=== PATIENT | male | born 1945 | race Caucasian/White ===

== ENCOUNTER → 2017-10-17 13:23 | Outpatient (CLI) | payer BC, SELFPAY ==
[2017-10-17 13:30] LABS: Microscopic, Urine URINE MICROSCOPIC (MICROSCOPIC)
[2017-10-17 14:01] LABS: Basophils % 0.1 % (0.1-2.0); Eosinophils # 0.1 K/mm3 (0.0-0.4); Eosinophils % 0.8 % (0.1-12.0); Hematocrit 41.3 % (42.0-52.0); Hemoglobin 13.1 g/dL (14.1-18.0); Lymphocytes # 0.9 K/mm3 (0.7-4.5); Lymphocytes % 15.2 K/mm3 (10-50); Mean Corpuscular HGB Conc 31.8 g/dL (31.8-35.4); Mean Corpuscular Volume 94.5 fl (80-94); Mean Platelet Volume 7.5 fl (7.4-10.4); Monocytes # 0.4 K/mm3 (0.1-1.0); Monocytes % 6.2 % (1.7-9.3); Neutrophils # 4.4 K/mm3 (1.8-7.8); Neutrophils % 77.7 % (37.0-80.0); Platelet Count 161 K/mm3 (142-424); Red Blood Count 4.37 M/mm3 (4.60-6.20); Red Cell Distribution Width 13.9 % (11.5-17.5); White Blood Count 5.6 K/mm3 (4.8-10.8)
[2017-10-17 14:55] LABS: Albumin Level 4.2 gm/dL (3.4-5.0); Anion Gap 16.4 mEq/L (5-15); Appearance,Urine CLEAR (Clear); Bilirubin,Urine Negative (Negative); Blood Urea Nitrogen 46 mg/dL (7-18); Blood, Urine Negative (Negative); Calcium 9.7 mg/dL (8.5-10.1); Carbon Dioxide 25 mmol/L (21.0-32.0); Chloride 105 mmol/L (98-107); Color,Urine YELLOW (Yellow); Creatinine,Serum 1.51 mg/dL (0.70-1.30); Estimated Glomerular Filt Rate 46 ml/min (>60); GFR (African American) 55 ML/MIN (>60); Glucose 177 mg/dL (74-106); Glucose,Urine (UA) 3+ (Negative); Ketones,Urine Negative (Negative); Leukocyte Esterase,Urine Negative (Negative); Nitrate,Urine Negative (Negative); Phosphorous 3.9 mg/dL (2.4-4.9); Potassium 5.4 mmoL/L (3.5-5.1); Protein,Urine Negative (Negative); Sodium 141 mmol/L (136-145); Uric Acid 6.3 mg/dL (2.6-7.2); Urobilinogen,Urine 0.2 EU/dl (0.2)
[2017-10-17 15:02] LABS: Creatinine,Urine Random 36 mg/dL (20-320)
[2017-10-17 15:07] LABS: Bacteria,Urine Trace /lpf; Squamous Epithelial Cell,Urine Occasional #/hpf (0-5)
[2017-10-18 06:05] LABS: Vitamin D 25 Hydroxy 37.6 ng/mL (30.0-100.0)
[2017-10-21 12:45] LABS: Parathyroid Hormone Intact 24 pg/mL (15-65)
== END ==
PROVIDERS: Visit Provider Internal Medicine Nephrology
DX: N18.3 Chronic kidney disease, stage 3 (moderate) (principal)
CPT/HCPCS: 36415; 80069; 81001; 82043; 82570; 82652; 83970; 84550; 85025

== ENCOUNTER → 2017-10-18 14:55 | Outpatient (CLI) | payer BC, SELFPAY ==
[2017-10-21 12:49] LABS: Calcium, Ionized 5.2 mg/dL (4.5-5.6)
== END ==
PROVIDERS: Visit Provider Internal Medicine Nephrology
DX: N18.3 Chronic kidney disease, stage 3 (moderate) (principal)
CPT/HCPCS: 36415; 82330

== ENCOUNTER → 2017-10-24 15:07 | Outpatient (POV) | payer BC, SELFPAY | PROVIDERS: Visit Provider Internal Medicine Nephrology | DX: Z00.00 Encounter for general adult medical examination without abnormal findings (principal) ==

== ENCOUNTER → 2018-11-21 11:26 | Outpatient (CLI) | payer MEDICARE, SELFPAY ==
[2018-11-21 11:35] LABS: Microscopic, Urine URINE MICROSCOPIC (MICROSCOPIC)
[2018-11-21 11:57] LABS: Basophils % 0.3 % (0.1-2.0); Eosinophils # 0.1 K/mm3 (0.0-0.4); Eosinophils % 1.7 % (0.1-12.0); Hematocrit 42.4 % (42.0-52.0); Lymphocytes # 1.2 K/mm3 (0.7-4.5); Lymphocytes % 29.6 % (10-50); Mean Corpuscular HGB Conc 35.4 g/dL (31.8-35.4); Mean Corpuscular Volume 87.7 fl (80-94); Mean Platelet Volume 7.3 fl (7.4-10.4); Monocytes # 0.2 K/mm3 (0.1-1.0); Monocytes % 4.9 % (1.7-9.3); Neutrophils # 2.5 K/mm3 (1.8-7.8); Neutrophils % 63.5 % (37.0-80.0); Platelet Count 154 K/mm3 (142-424); Red Blood Count 4.83 M/mm3 (4.60-6.20); Red Cell Distribution Width 13.7 % (11.5-17.5); White Blood Count 3.9 K/mm3 (4.8-10.8)
[2018-11-21 12:15] LABS: Appearance,Urine CLEAR (Clear); Bilirubin,Urine Negative (Negative); Blood, Urine TRACE-I (Negative); Color,Urine YELLOW (Yellow); Glucose,Urine (UA) Negative (Negative); Ketones,Urine Negative (Negative); Leukocyte Esterase,Urine Negative (Negative); Nitrate,Urine Negative (Negative); PH,Urine 5.5 (5.0-8.5); Protein,Urine TRACE (Negative); Specific Gravity, Urine >= 1.030 (1.005-1.030); Urobilinogen,Urine 0.2 EU/dl (0.2)
[2018-11-21 12:34] LABS: Creatinine,Urine Random 190 mg/dL (20-320)
[2018-11-21 12:49] LABS: Bacteria,Urine Trace /lpf; Mucus,Urine Trace /lpf; WBC,Urine Occasional #/hpf (0-3)
[2018-11-21 13:22] LABS: Albumin Level 3.9 gm/dL (3.4-5.0); Anion Gap 17.3 mEq/L (5-15); Blood Urea Nitrogen 35 mg/dL (7-18); Calcium 8.8 mg/dL (8.5-10.1); Carbon Dioxide 23 mmol/L (21.0-32.0); Chloride 105 mmol/L (98-107); Creatinine,Serum 1.43 mg/dL (0.70-1.30); Estimated Glomerular Filt Rate 49 ml/min (>60); GFR (African American) 59 ML/MIN (>60); Glucose 240 mg/dL (74-106); Phosphorous 3.3 mg/dL (2.4-4.9); Potassium 5.3 mmoL/L (3.5-5.1); Sodium 140 mmol/L (136-145); Uric Acid 6.6 mg/dL (2.6-7.2)
[2018-11-22 10:33] LABS: Microalbumin, Urine 179.4 ug/mL (Not Estab.)
== END ==
PROVIDERS: Visit Provider Internal Medicine Nephrology
DX: N18.3 Chronic kidney disease, stage 3 (moderate) (principal)
CPT/HCPCS: 36415; 80069; 81001; 82043; 82570; 82652; 83520; 84550; 85025

== ENCOUNTER → 2018-12-06 16:04 | Outpatient (POV) | payer MEDICARE, SELFPAY | PROVIDERS: Visit Provider Internal Medicine Nephrology | DX: Z00.00 Encounter for general adult medical examination without abnormal findings (principal) ==

== ENCOUNTER → 2019-07-12 16:31 | Outpatient (CLI) | payer MEDICARE, OTHER, SELFPAY ==
[2019-07-12 17:06] LABS: Basophils % 0.1 % (0.1-2.0); Eosinophils # 0.1 K/mm3 (0.0-0.4); Eosinophils % 1.1 % (0.1-12.0); Hematocrit 43.6 % (42.0-52.0); Hemoglobin 14.2 g/dL (14.1-18.0); Lymphocytes # 0.7 K/mm3 (0.7-4.5); Lymphocytes % 6.9 % (10-50); Mean Corpuscular HGB Conc 32.5 g/dL (31.8-35.4); Mean Corpuscular Hemoglobin 29.1 pg (27.0-31.2); Mean Corpuscular Volume 89.6 fl (80-94); Mean Platelet Volume 7.8 fl (7.4-10.4); Monocytes # 0.4 K/mm3 (0.1-1.0); Monocytes % 3.6 % (1.7-9.3); Neutrophils # 9.1 K/mm3 (1.8-7.8); Neutrophils % 88.4 % (37.0-80.0); Platelet Count 204 K/mm3 (142-424); Red Blood Count 4.87 M/mm3 (4.60-6.20); Red Cell Distribution Width 13.5 % (11.5-17.5); White Blood Count 10.2 K/mm3 (4.8-10.8)
[2019-07-12 17:17] LABS: MANUAL DIFFERENTIAL MANUAL DIFFERENTIAL (MANUAL DIFF)
[2019-07-12 17:18] LABS: Alanine Aminotransferase 20 U/L (12-78); Albumin Level 4.1 gm/dL (3.4-5.0); Albumin/Globulin Ratio 1.1 (1.1-1.8); Alkaline Phosphatase 106 U/L (46-116); Amylase 73 U/L (25-115); Anion Gap 16.5 mEq/L (5-15); Aspartate Amino Transferase 13 U/L (15-37); Bilirubin,Total 0.6 mg/dL (0.2-1.0); Blood Urea Nitrogen 42 mg/dL (7-18); Calcium 9.6 mg/dL (8.5-10.1); Carbon Dioxide 24 mmol/L (21.0-32.0); Chloride 104 mmol/L (98-107); Creatinine,Serum 1.74 mg/dL (0.70-1.30); Estimated Glomerular Filt Rate 39 ml/min (>60); GFR (African American) 47 ML/MIN (>60); Globulin 3.6 gm/dl (1.3-3.2); Glucose 283 mg/dL (74-106); Lipase 250 u/L (73-393); Potassium 4.5 mmoL/L (3.5-5.1); Sodium 140 mmol/L (136-145); Total Protein,Serum 7.7 gm/dL (6.4-8.2)
[2019-07-12 18:04] LABS: Lymphocytes % 10 % (10-50); Monocytes % 1 % (2-9); Neutrophils % 89 % (42-76); Total Cells Counted 100
[2019-07-12 18:05] LABS: Platelet Estimate Normal; RBC Morphology Normal
--- NOTE | 2019-07-12 18:34 | CT_ITS ---
PROCEDURE: CT ABDOMEN PELVIS WO CON CLINICAL INDICATION: PERIUMBILICAL ABD PAIN, HX LAPAROTOMY Abdominal pain, periumbilical pain with nausea COMPARISON: No exams were available for comparison TECHNIQUE: Axial images obtained with sagittal and coronal reformats. All CT scans at the facility use one or more dose reduction, viz: automated exposure control, ma/kV adjustment per patient size (including targeted exams where dose is matched to indication, i.e. head), or iterative reconstruction technique. Oral contrast was administered. FINDINGS: LOWER THORAX: Lung bases are clear. There are coronary artery calcifications. ABDOMEN & PELVIS: The liver, spleen, adrenal glands, and pancreas have an unremarkable unenhanced appearance. There are bilateral renal cysts. No renal calculi or ureteral calculi evident. The stomach is distended. There are multiple distended small bowel loops with air-fluid levels. Some of these loops contain fecalized material. Nondistended loops are present in the right lower quadrant. The transition to nondistended bowel is present in the lower abdomen/upper pelvic region. Small bowel loops appear clumped together in the mid abdomen with some sub adjacent fluid or bowel wall thickening in the right mid abdominal region. Soft tissues Unremarkable appendix. Large bowel is decompressed. There is a small umbilical hernia containing fat and a small hernia just superior to the umbilicus which appears to contain a knuckle of small bowel. There are degenerative changes in the hips and spine. Multiple surgical clips are present in the retroperitoneum. IMPRESSION: The findings are consistent with small bowel obstruction with suspected transition in the lower abdomen/upper pelvic region. There is some sub adjacent increased soft tissue density in the right mid abdominal region overlying the clumped small-bowel loops which could be due to fluid or bowel wall thickening or Nakia enteric inflammatory change. There is a small umbilical and small supraumbilical hernia. The supraumbilical hernia appears to contain a knuckle of small bowel. Dictated by: Abdifatah Staples MD 07/13/2019 05:31 Electronically signed by Abdifatah Staples MD in [place] 07/13/2019 05:31
== END ==
PROVIDERS: PCP Family Medicine; Visit Provider Family Medicine
DX: R10.33 Periumbilical pain (principal); Z98.890 Other specified postprocedural states
CPT/HCPCS: 36415; 74176; 80053; 82150; 83690; 85007; 85025

== ENCOUNTER → 2019-12-26 09:23 | Outpatient (CLI) | payer MEDICARE, OTHER, SELFPAY ==
[2019-12-26 09:34] LABS: Microscopic, Urine URINE MICROSCOPIC (MICROSCOPIC)
[2019-12-26 10:04] LABS: Basophils # 0.2 K/mm3 (0-0.2); Basophils % 4.1 % (0.1-2.0); Eosinophils # 0.1 K/mm3 (0.0-0.4); Eosinophils % 2.1 % (0.1-12.0); Hematocrit 44.4 % (42.0-52.0); Hemoglobin 13.2 g/dL (14.1-18.0); Lymphocytes # 1.6 K/mm3 (0.7-4.5); Lymphocytes % 30.5 % (10-50); Mean Corpuscular HGB Conc 29.8 g/dL (31.8-35.4); Mean Corpuscular Hemoglobin 30.1 pg (27.0-31.2); Mean Platelet Volume 11.4 fl (7.4-10.4); Monocytes # 0.2 K/mm3 (0.1-1.0); Monocytes % 4.7 % (1.7-9.3); Neutrophils # 3.2 K/mm3 (1.8-7.8); Neutrophils % 62.6 % (37.0-80.0); Platelet Count 157 K/mm3 (142-424); Red Blood Count 4.39 M/mm3 (4.60-6.20); Red Cell Distribution Width 19.7 % (11.5-17.5); White Blood Count 5.2 K/mm3 (4.8-10.8)
[2019-12-26 10:42] LABS: Albumin Level 4.5 g/dl (3.5-5.0); Chloride 107 mmol/L (98-107); Potassium 4.9 mmoL/L (3.5-5.1); Sodium 140 mmol/L (136-145)
[2019-12-26 10:45] LABS: Anion Gap 14.9 mEq/L (5-15); Blood Urea Nitrogen 43 mg/dl (9-20); Carbon Dioxide 23 mmol/L (22.0-30.0); Estimated Glomerular Filt Rate 43 ml/min (>60); GFR (African American) 52 ML/MIN (>60); Phosphorous 4.2 mg/dl (2.5-4.5); Uric Acid 7.5 mg/dl (3.5-8.5)
[2019-12-26 10:46] LABS: Calcium 9.6 mg/dl (8.4-10.2); Glucose 169 mg/dl (74-100)
[2019-12-26 10:57] LABS: Intact Parathyroid Hormone 57.6 pg/mL (7.5-53.5)
[2019-12-26 11:02] LABS: 25-OH Vitamin D, Total 44.8 ng/mL (30-100)
[2019-12-26 11:05] LABS: Appearance,Urine CLEAR (Clear); Bilirubin,Urine Negative (Negative); Blood, Urine 2+ (Negative); Color,Urine YELLOW (Yellow); Glucose,Urine (UA) Negative (Negative); Ketones,Urine Negative (Negative); Leukocyte Esterase,Urine Negative (Negative); Nitrate,Urine Negative (Negative); PH,Urine 5.5 (5.0-8.5); Protein,Urine 2+ (Negative); Urobilinogen,Urine 0.2 EU/dl (0.2)
[2019-12-26 11:32] LABS: Bacteria,Urine Trace /lpf; Squamous Epithelial Cell,Urine Occasional #/hpf (0-5)
[2019-12-26 11:55] LABS: Creatinine,Urine Random 91 mg/dL (Not Estab.)
== END ==
PROVIDERS: Visit Provider Internal Medicine Nephrology
DX: N18.3 Chronic kidney disease, stage 3 (moderate) (principal)
CPT/HCPCS: 36415; 80069; 81001; 82306; 82570; 83970; 84155; 84550; 85025

== ENCOUNTER 2024-12-06 08:36 | Outpatient (CLI) | payer MEDICARE, OTHER, SELFPAY ==
--- OUTSIDE RECORDS SUMMARY | 2024-12-06 08:40 | XMS_ITS | Clinical Summary ---
Author Organization Healthcare Address [address] [place] [address] Care Team Providers Care Ultrasound Specialist Name Role Phone Rosalee Foster APRN Primary Care Provider [phone] Family History Medical History Relation Name Comments Cardiac disorder Father Breast cancer Mother Hip fracture Mother Relation Name Status Comments Father Mother Social History Tobacco Use Types Packs/Day Years Used Date Smoking Tobacco: Never Alcohol Use Standard Drinks/Week Comments No 0 (1 standard drink = 0.6 oz pur e alcohol) Sex and Gender Information Value Date Recorded Sex Assigned at Not on file Legal Sex Male 7:34 PM EDT Gender Identity Not on file Sexual Orientation Not on file Last Filed Vital Signs Vital Sign Reading Time Taken Comments Blood Pressure 139/73 12/06/2018 3:42 PM EDT Pulse 75 12/06/2018 3:42 PM EDT Temperature - - Respiratory Rate - - Oxygen Saturation - - Inhaled Oxygen Concentration - - Weight 71.7 kg (158 lb 0.1 oz) 12/06/2018 3:42 P M EDT Height 170.2 cm (5' 7 ) 02/24/2015 3:44 PM EDT Body Mass Index 24.75 02/24/2015 3:44 PM EDT Plan of Treatment Not on file Care Teams Ultrasound Specialist Relationship Specialty Start Date End Date Rosalee Foster APRN [address] [place] [address] PCP - General 11/07/20
--- NOTE | 2024-12-06 08:44 | XR_ITS ---
FINAL REPORT CLINICAL HISTORY: pain x months, no known trauma, no surgeries COMPARISON: None FINDINGS: RIGHT HIP Two views of the right hip with an AP view of the pelvis demonstrate no acute fracture or dislocation. The joint spaces are preserved. There are mild hypertrophic changes along the acetabular margin. A well corticated ossific density is seen lateral to the hip measuring 6 mm, probably degenerative. No soft tissue abnormality is seen. IMPRESSION: Mild degenerative/chronic changes without acute bony abnormality. Reviewed, Interpreted and Dictated by Iain Stuart MD Transcribed by Pastora Conley Authenticated and [facility]
--- NOTE | 2024-12-06 08:47 | XR_ITS ---
FINAL REPORT CLINICAL HISTORY: right sided pain that radiates down right leg, no known trauma, no surgeries COMPARISON: None FINDINGS: LUMBOSACRAL SPINE SERIES Five views of the lumbosacral spine were obtained. There is no fracture present. There is no malalignment. There is moderate disc space narrowing L2-3 through L5-S1. Endplate hypertrophic changes are noted particularly at L4-5. There are multiple surgical clips anterior to the lower lumbar spine. Lumbar scoliosis measures 17 degrees. IMPRESSION: Diffuse changes of degenerative disc disease particularly evident at L4-5 with endplate sclerosis. Reviewed, Interpreted and Dictated by Iain Stuart MD Transcribed by Pastora Conley Authenticated and [facility]
== END 2024-12-06 23:59 | disposition home or self-care (01) ==
LOC: RAD 08:38
PROVIDERS: PCP Family Medicine; Visit Provider Nurse Practitioner
DX: M47.816 Spondylosis without myelopathy or radiculopathy, lumbar region (principal); M48.8X6 Other specified spondylopathies, lumbar region; M16.12 Unilateral primary osteoarthritis, left hip
CPT/HCPCS: 72110; 73502